=== PATIENT | male | born 1975 | race Caucasian/White ===

== ENCOUNTER → 2022-07-01 09:36 | Outpatient (BNVA) | payer OTHER, SELFPAY | PROVIDERS: PCP Family Medicine; Visit Provider Psychiatry & Neurology Neurology | DX: G80.9 Cerebral palsy, unspecified (principal); G40.909 Epilepsy, unspecified, not intractable, without status epilepticus; Z99.3 Dependence on wheelchair | CPT/HCPCS: 99202 ==

== ENCOUNTER 2023-07-02 10:45 | Outpatient (AMB) | payer OTHER, SELFPAY ==
--- NOTE | 2023-07-02 11:19 | A.OFFVIS_ITS ---
Intake Intake Visit Reasons: 1yr f/u Cerebral Palsy & Seizure disorder - CONF Intake Note: Patient presents for 1 year F/U. Allergies phenytoin [From Dilantin] Allergy (Mild, Verified 07/02/23 11:22) lethargy bactrim Allergy (Unknown, Uncoded 07/01/22 09:56) Unknown HPI HPI Comments History of Present Illness Details 48 y/o male patient presents for follow up of seizure. He is accompanied by Assisted Care provider. He has h/o cerebral palsy with spastic quadriparesis, and uses tizanidine 2 mg BID and 4 mg q HS. Pt is on is on Depakote 500 mg BID and compliant and his last seizures was 16 years ago. He goes to a Day Program 5 days a week and says he plays games, ipad games. He tries to help out the day program. He is dependant on all his ADLS. He can feed himself under supervision to avoid choking. He denies pain. He sleeps good. He cannot read. Lab result reviewed. CBC, CMP result was WNL and valproic level was 117.3. [facility] Medical History (Updated 07/03/23 @ 20:09 by Nellie Hendrickson CNP) Seizures Nephrolithiasis Acne Dysuria Dysphagia Incomplete bladder emptying Osteoporosis Depression Seizures Spastic quadriparesis Cerebral palsy Family History Father Hypertension Social History Alcohol intake: never Patient Tobacco Use Status: Never used Tobacco Review of Systems Const All systems reviewed & are unremarkable except as noted in HPI and below Physical Exam Const General: cooperative Nutritional Appearance: average body habitus Orientation/consciousness: oriented to person Limitations: wheelchair Neuro Other: Right eye laterally deviated.with difficulty in medial movement Asymmetrical face . jaw dystonia Increased tone in all 4 extremities with posturing weakness in all 4 extremities able to follow commands speech - slurred General: oriented to person Deep tendon reflexes (DTR's): Right triceps reflex intensity grade: 3+, Left triceps reflex intensity grade: 3+, Rt Biceps (C5, C6): 3+, Left biceps reflex intensity grade: 3+, Right brachioradialis reflex intensity grade: 3+, Left brachioradialis reflex intensity grade: 3+, Right patellar reflex intensity grade: 4+, Left patellar reflex intensity grade: 4+, Right ankle reflex intensity grade: 4+ and Left ankle reflex intensity grade: 4+ Coordination: [id number] test normal Psych Appearance: grossly normal Assessment & Plan Assessment & Plan (1) Spastic quadriparesis: Code(s): G82.50 - Quadriplegia, unspecified (2) Cerebral palsy: Code(s): G80.9 - Cerebral palsy, unspecified (3) Seizures: Comment: seizure free for 16 years Code(s): R56.9 - Unspecified convulsions Plan Continue tozanidine 2mg bid 4 mg qhs Depakote 500mg bid Orders: Orders Complete Blood Count Auto Diff 07/02/23 R56.9 - Unspecified convulsions Comprehensive Met. Panel 07/02/23 R56.9 - Unspecified convulsions Valproate 07/02/23 R56.9 - Unspecified convulsions Coding Level of Care Code Est Pt Level 3 (32937) Diagnoses Spastic quadriparesis G82.50 Cerebral palsy G80.9 Seizures R56.9
== END 2023-07-02 11:52 | disposition home or self-care (01) ==
PROVIDERS: Visit Provider Nurse Practitioner Family
DX: G82.50 Quadriplegia, unspecified (principal); G80.9 Cerebral palsy, unspecified; R56.9 Unspecified convulsions
CPT/HCPCS: 99213

== ENCOUNTER → 2023-07-02 10:45 | Outpatient (BNVA) | payer OTHER, SELFPAY | PROVIDERS: Visit Provider Nurse Practitioner Family | DX: G82.50 Quadriplegia, unspecified (principal); G80.9 Cerebral palsy, unspecified; R56.9 Unspecified convulsions | CPT/HCPCS: 99212 ==

== ENCOUNTER 2024-06-30 08:09 | Outpatient (AMB) | payer OTHER, SELFPAY ==
--- NOTE | 2024-06-30 08:11 | MHC.OFFVIS ---
Intake Visit Reasons: 1yr f/u Cerebral Palsy/Seizure disorder Intake Note: Patient presents for cerebral palsy/seizure disorder Allergies phenytoin [From Dilantin] Allergy (Mild, Verified 06/30/24 08:15) lethargy bactrim Allergy (Unknown, Uncoded 06/30/24 08:15) Unknown Medication List - Last Reconciled 06/30/24 by Maci Scales MD acetaminophen 650 mg PO QID PRN bacitracin zinc (Antibiotic (bacitracin zinc)) 1 appl topical TID calcium carbonate-vitamin D3 600 mg-10 mcg (400 unit) 1 tab PO BID citalopram 40 mg PO DAILY divalproex 500 mg PO BID guaifenesin 200 mg PO Q4H PRN melatonin 3 mg PO psyllium husk (with sugar) 3.4 gram/7 gram (Natural Fiber Laxative (sugar)) PO sucralfate mL PO tamsulosin mg PO tizanidine 1/2 tab bid and 1 tab qhs orally; CRUSH and take it with food HPI Comments Details: 49 y/o male patient presents for follow up of seizure and spasticity related to his CP. He is accompanied by [facility] Care provider. He has h/o cerebral palsy with spastic quadriparesis, and uses tizanidine 2 mg BID and 4 mg q HS. Pt is on is on Depakote 500 mg BID and compliant and his last seizures was 16 years ago. He goes to a Day Program 5 days a week and says he plays games, ipad games. He tries to help out the day program. He is dependant on all his ADLS. He can feed himself under supervision to avoid choking. He denies pain. He sleeps good. He cannot read. . [facility] Medical History Seizures Nephrolithiasis Acne Dysuria Dysphagia Incomplete bladder emptying Osteoporosis Depression Seizures Spastic quadriparesis Cerebral palsy Family History Father Hypertension Social History Alcohol intake: never Patient Tobacco Use Status: Never used Tobacco Physical Exam Const General: cooperative Nutritional Appearance: average body habitus Orientation/consciousness: oriented to person Limitations: wheelchair Neuro Other: Right eye laterally deviated.with difficulty in medial movement Asymmetrical face . jaw dystonia Increased tone in all 4 extremities with posturing weakness in all 4 extremities able to follow commands speech - slurred General: oriented to person Deep tendon reflexes (DTR's): Right triceps reflex intensity grade: 3+, Left triceps reflex intensity grade: 3+, Rt Biceps (C5, C6): 3+, Left biceps reflex intensity grade: 3+, Right brachioradialis reflex intensity grade: 3+, Left brachioradialis reflex intensity grade: 3+, Right patellar reflex intensity grade: 4+, Left patellar reflex intensity grade: 4+, Right ankle reflex intensity grade: 4+ and Left ankle reflex intensity grade: 4+ Coordination: [id number] test normal Psych Appearance: grossly normal Assessment & Plan Assessment & Plan (1) Spastic quadriparesis: Code(s): G82.50 - Quadriplegia, unspecified Category: Medical (2) Cerebral palsy: Code(s): G80.9 - Cerebral palsy, unspecified Category: Medical Qualifiers: Cerebral palsy type: unspecified type Qualified Code(s): G80.9 - Cerebral palsy, unspecified (3) Seizures: Comment: seizure free for 16 years Code(s): R56.9 - Unspecified convulsions Category: Medical Plan Continue tozanidine 2mg bid 4 mg qhs Depakote 500mg bid Coding Level of Care Code Est Pt Level 4 (73222) Diagnoses Spastic quadriparesis G82.50 Cerebral palsy, unspecified type G80.9 Cerebral palsy type: unspecified type Seizures R56.9
--- OUTSIDE RECORDS SUMMARY | 2024-06-30 08:11 | XMS_ITS | Clinical Summary ---
Author Organization [facility] Address [address] [place] [address] Care Team Providers Care Licensed Vocational Nurse Name Role Phone Ina Vargas MD Primary Care Provider [phone] Allergies Active Allergy Reactions Criticality Noted Date Comments Phenytoin Sodium 06/04/2005 lethargy Sulfamethoxazole-Trimethoprim 2005 Medications Medication Sig Dispensed Refills Start Date End Date Status FIBER, DEXTRIN, ORAL Take 1 Dose by mouth 2 (two) times a day. 02/05/2024 Active guaiFENesin (ROBITUSSIN) 100 mg/5 mL liquid Take 10 mL by mouth every 4 (four) hours if needed for cough. 02/05/2024 Active calcium carbonate-vitamin D3 600 mg-10 mcg (400 unit) capsule Take 1 tablet by mouth 2 (two) times a day with meals. Take 1 Tablet by mouth 2 Times Daily. Crush and take with food 02/05/2024 Active tamsulosin (FLOMAX) 0.4 mg 24 hr capsule Take 1 capsule (0.4 mg total) by mouth at bedtime. TAKE 1 CAPSULE BY MOUTH AT BEDTIME. TAKE 30 MINUTES AFTER THE SAME MEAL EACH DAY. (SPRINKEL OVER FOOD) 02/04/2024 Active tiZANidine (ZANAFLEX) 4 mg tablet Take 0.5 tablets (2 mg total) by mouth 2 (two) times a day. TAKE 1/2 TABLET BY MOUTH DAILY IN THE MORNING AND AT 4 PM. TAKE 1 TABLET BY MOUT AT 8PM. 02/04/2024 Active bacitracin 500 unit/gram ointment Apply 1 Application topically every 4 (four) hours if needed for wound care. Use every 4 hrs as needed for minor cuts and abrasions on hands and arms, dose must be 4 hours apart and to contact HCP if symptoms are not resolved within7 days 09/22/2023 Active acetaminophen (TYLENOL 8 HOUR) 650 mg 8 hr tablet Take 1 tablet (650 mg total) by mouth every 4 (four) hours if needed for mild pain, moderate pain or headaches. 09/22/2023 Active psyllium husk 2.6 gram/4.1 gram powder 1 each by Not Applicable route 2 (two) times a day. 1 Each by Does not apply route See Admin Instructions. Take 1 teaspoon mixed with 6 ounces of water twice daily 04/16/2022 Active fluoride, sodium, 1.1 % cream Apply 1 Dose to teeth 1 (one) time each day. Place 1 Dose onto teeth daily. 10/20/2020 Active disposable gloves misc As directed Dx: CP , Dysuria, Incontinence, C/P 08/21/2016 Active divalproex (DEPAKOTE SPRINKLE) 125 mg capsule Take 4 capsules (500 mg total) by mouth 2 (two) times a day. Active citalopram (CeleXA) 40 mg tablet Take 1 tablet (40 mg total) by mouth 1 (one) time each day. Active Active Problems Problem Noted Date Diagnosed Date Pure hypercholesterolemia 09/22/2023 Seizure disorder 08/18/2021 Nephrolithiasis 07/06/2019 Incomplete bladder emptying 02/12/2019 Overview (05/06/2024): [facility] Dysphagia 12/18/2016 Osteoporosis 06/19/2011 Overview (05/06/2024): 06/06 L spine: tscore -4.0; fourth dose Zoledronic acid 07/03/17; 5th dose Zoledronic acid 01/01/19 Acne 06/04/2005 CP (cerebral palsy), athetoid 06/04/2005 Overview (05/06/2024): Dr Rai and Imtiaz Depression 06/04/2005 Overview (05/06/2024): Socorro Ward NP, prescribing Dysuria 06/04/2005 Immunizations Name Administration Dates Next Due Hepatitis A Adult (Havrix; V aqta) 19yo and older 07/13/2009,01/09/2009 Hepatitis B (Recombivax HB-D ialysis) 18yo and older 06/03/2012,02/09/2009,01/09/2009 Influenza Quadravalent, MDCK , 0.5ml, preservative free (Flucelvax) 6mo and older 02/18/2022 Influenza, Unspecified 02/14/2023 PPD Test 05/23/2010 Pneumococcal polysaccharide 23 valent (Pneumovax 23) 2yo and older 05/23/2010,01/09/2009 Td Tetanus diptheria (Tdvax) 7yo and older 05/14,09/17/2002 Surgical History Surgery Date Site/Laterality Comments OTHER SURGICAL HISTORY 1990 PROCEDURE: ---- OTHER ----; COMMENT: testicular surgery due to infection? bilat torsion in 1989? unclear OTHER SURGICAL HISTORY PROCEDURE: ---- OTHER ----; COMMENT: corrective surgery of legs as child Medical History Medical History Date Comments Depressive disorder, not els ewhere classified 06/04/2005 DX:Depressive disorder, not elsewhere classified Other acne 06/04/2005 DX:Other acne Infantile cerebral palsy, unspecified 06/04/2005 DX:Infantile cerebral palsy, unspecified Spasm of muscle 06/04/2005 DX:Spasm of musc le Seizure (CMS/HCC) DX:Seizure (HC C); COMMENT: Possible in 1998 - Unclear. Normal EEG 1999. Epididymitis 2002 DX:Epididymitis Varicocele 2002 DX:Varicocele; C OMMENT: small rightsided; h/o left varicocele prior to orchiectomy on the left Hydrocele 2002 DX:Hydrocele; CO MMENT: left Torsion of testis DX:Torsion of testis; COMMENT: bilateral Family History Medical History Relation Name Comments Hypertension Father Osteoporosis Maternal Grandmother Coronary artery disease Neg Hx Diabetes Neg Hx Other cancer Neg Hx Relation Name Status Comments Father Maternal Grandmother Social History Tobacco Use Types Packs/Day Years Used Date Smoking Tobacco: Never Smokeless Tobacco: Never Alcohol Use Standard Drinks/Week Comments No 0 (1 standard drink = 0.6 oz pur e alcohol) Sex and Gender Information Value Date Recorded Sex Assigned at Not on file Gender Identity Not on file Sexual Orientation Not on file Obstetrics History Last Filed Vital Signs Vital Sign Reading Time Taken Comments Blood Pressure 134/80 09/23/2023 10:29 AM EDT Pulse 76 09/23/2023 10:29 AM EDT Temperature - - Respiratory Rate - - Oxygen Saturation - - Inhaled Oxygen Concentration - - Weight 45.4 kg (100 lb) 12/05/2021 2:51 PM EDT Height 149.9 cm (4' 11 ) 09/23/2023 10:29 AM EDT Body Mass Index 18.29 12/05/2021 2:51 PM EDT Plan of Treatment Upcoming Encounters Date Type Department Care Team (Late st Contact Info) Description 09/21/2024 9:45 AM EDT Office Visit Endocrinology - [place] [address] [place] [address] Timo Madrid MD [address] [place] [address] Health Maintenance Due Date Last Done Comments HIV Screening 05/04/2022 Social Influencers of Health Screening 05/04/2022 Zoster Vaccines (1 of 2) 2023 COVID-19 Vaccine (4 - 2023-2 5 season) 2024 04/15/2021, 07/26/2020, 07/05/2020 Influenza Vaccine (#1) 2024 , 02/18/2022 Depression Screening 09/21/2024 09/22/2023 Cholesterol Screening (Lipid Panel) 09/21/2028 09/22/2023, 09/22/2023 DTaP,Tdap,and Td Vaccines (3 - Td or Tdap) 05/14/2029 05/14/2019, 09/17/2002 Colorectal Cancer Screening: Colonoscopy 07/17/2033 07/17/2023 Hepatitis A Vaccines Aged Out 07/13/2009, 01/09/2009 No longer eligible based on patient's age to complete this topic Pneumococcal Vaccine: Pediatrics (0 to 5 Years) and At-Risk Patients (6 to 64 Years) Aged Out 05/23/2010, 01/09/2009 No longer eligible based on patient's age to complete this topic Hepatitis B Vaccines Completed 06/03/2012, 02/09/2009, 01/09/2009 Hepatitis C Screening Completed 09/22/2023 HIB Vaccines Aged Out No longer eligi ble based on patient's age to complete this topic HPV Vaccines Aged Out No longer eligi ble based on patient's age to complete this topic IPV Vaccines Aged Out No longer eligi ble based on patient's age to complete this topic MMR Vaccines Aged Out No longer eligi ble based on patient's age to complete this topic Meningococcal ACWY Vaccine Aged Out N o longer eligible based on patient's age to complete this topic RSV Immunization Patients Under 20 months Aged Out No longer eligible b ased on patient's age to complete this topic Varicella Vaccines Aged Out No longer eligible based on patient's age to complete this topic Procedures Procedure Name Priority Date/Time Associated Diagnosis Comments HEPATITIS C SCREENING Routine 09/22/2023 DEPRESSION SCREENING Routine 09/22/2023 LIPID PANEL Routine 09/22/2023 COLONOSCOPY Routine 07/17/2023 from Last 3 Months or Most Recently Relevant to Health Maintenance Results * Depression Screening (09/22/2023) [facility] Depression Screening Abstracted Historical Provider MD PEARL POSADAS E * Hepatitis C Screening (09/22/2023) [facility] Hepatitis C Screening Abstracted Historical Provider MD PEARL POSADAS E * (ABNORMAL) Lipid panel (09/22/2023) [facility] LDL/HDL Ratio 3 0 - 4 Triglycerides 80 0 - 150 mg/dL Cholesterol 227(A) 0 - 200 mg/dL HDL 90 40 mg/dL LDL Cholesterol 121(A) 0 - 100 mg/dL Blood Venous blood specimen / Unknown Historical Provider LAB BLOOD ORDERAB LES * Colonoscopy (07/17/2023) [facility] Colonoscopy No interpreta tion,abstr acted Anatomical Region Laterality Modality Other Historical Provider MD PEARL Soni from Last 3 Months or Most Recently Relevant to Health Maintenance Advance Directives Documents on File Type Date Recorded 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
== END 2024-06-30 08:39 | disposition home or self-care (01) ==
PROVIDERS: PCP Family Medicine; Visit Provider Psychiatry & Neurology Neurology
DX: G80.0 Spastic quadriplegic cerebral palsy (principal)
CPT/HCPCS: 99214

== ENCOUNTER → 2024-06-30 08:09 | Outpatient (BNVA) | payer OTHER, SELFPAY | PROVIDERS: PCP Family Medicine; Visit Provider Psychiatry & Neurology Neurology | DX: G80.9 Cerebral palsy, unspecified (principal); R56.9 Unspecified convulsions; G82.50 Quadriplegia, unspecified | CPT/HCPCS: 99212 ==